=== PATIENT | male | born 1995 | race Caucasian/White ===

== ENCOUNTER 2018-12-04 10:24 | Inpatient (IN) | payer BC ==
[~2018-12-04] VITALS: Ht 185.4 cm; Wt 80.4 kg
--- NOTE | 2018-12-04 11:30 | NUR ---
Arrived to the room at this time. When placing and IV the patient became unresponsive for about 3-5 seconds. Following, the patient was diaphoretic and pupils were dilated to an 8. He was unaware of his change in level of consciousness. The mother who was at the bedside reported the patient frequently in the passed has had this happen when exposed to blood or body fluids. The patient was alert and oriented upon follow-up assessment. Dr. Winkler notified.
[2018-12-04] MEDS ORDERED: FLONASE NASAL S16 GM NS (12:23)
[2018-12-04 12:49] VITALS: BP 109/64; PULSE 82; TEMP 101.4
[2018-12-04 13:23] LABS: BASO % 0.2 % (0.0-2.0); GRAN # 9.1 (1.4-6.5); GRAN % 84.7 % (42.2-75.2); HEMOGLOBIN 14.9 g/dl (13.5-18.0); LYMPH # 0.9 (1.2-3.4); LYMPH % 8.1 % (20.0-51.0); MEAN CELL VOLUME 85 fl (80.0-100.0); MEAN CORPUSCULAR HEMOGLOBIN 30 pg (27.0-31.0); MEAN CORPUSCULAR HGB CONC 35 g/dl (33.0-37.0); MEAN PLATELET VOLUME 9.3 fl (7.4-10.4); MONO # 0.7 (0.1-0.6); MONO % 6.7 % (1.7-9.3); PLATELET COUNT 187 K/mm3 (130-400); RED BLOOD COUNT 5.04 M/mm3 (4.20-5.60); REDCELL DISTRIBUTION WIDTH-CV 12.5 % (11.5-14.5)
[2018-12-04 13:26] LABS: INR 1.4 (0.8-3.0); PROTHROMBIN TIME 15.7 SECONDS (9.7-12.8)
[2018-12-04 13:35] LABS: ALBUMIN 3.8 gm/dL (3.5-5.0); BILIRUBIN,TOTAL 0.8 mg/dL (0.0-1.0); CREATININE, serum 1.07 (0.66-1.25); MAGNESIUM 1.8 mg/dL (1.6-2.3); POTASSIUM 3.8 mmol/L (3.4-5.0); TOTAL PROTEIN 6.8 gm/dL (6.4-8.2)
[2018-12-04 16:04] VITALS: BP 116/60; PULSE 55; TEMP 98.1
[2018-12-04 21:33] VITALS: BP 119/71; PULSE 56; TEMP 98.3
--- NOTE | 2018-12-04 21:44 | NUR ---
PT IN BED WITH HOB ELEVATED TO 45 DEGREE ANGLE. PT HAS PAIN IN RIGHT UPPER QUAD RATED AT A 4/10 THAT IS ACHING. PT HAS MOTHER AND GIRLFRIEND AT BEDSIDE. NO NEEDS AT THIS TIME. CALL LIGHT WITHIN REACH.
[2018-12-05] VITALS (7 sets, daily range): BP systolic 92–118; BP diastolic 52–71; PULSE 48–69; TEMP 97.7–98.3
--- NOTE | 2018-12-05 04:00 | NUR ---
UNEVENTFUL NIGHT, PT SLEEP/RESTING IN BED WITH HOB ELEVATED TO 30 DEGREE ANGLE, GIRLFRIEND IN RECLINER AT BEDSIDE. PT DENIED PAIN OR DISCOMFORT AND HAS CALL LIGHT WITHIN REACH.
[2018-12-05 06:28] LABS: BASO % 0.3 % (0.0-2.0); EOS % 0.6 % (0-4.0); GRAN # 3.9 (1.4-6.5); HEMATOCRIT 39.9 % (42.0-52.0); HEMOGLOBIN 13.8 g/dl (13.5-18.0); LYMPH # 1.4 (1.2-3.4); LYMPH % 20.9 % (20.0-51.0); MEAN CELL VOLUME 86 fl (80.0-100.0); MEAN CORPUSCULAR HEMOGLOBIN 30 pg (27.0-31.0); MEAN CORPUSCULAR HGB CONC 35 g/dl (33.0-37.0); MEAN PLATELET VOLUME 9.4 fl (7.4-10.4); MONO # 1.2 (0.1-0.6); MONO % 17.7 % (1.7-9.3); PLATELET COUNT 172 K/mm3 (130-400); RED BLOOD COUNT 4.62 M/mm3 (4.20-5.60); REDCELL DISTRIBUTION WIDTH-CV 12.8 % (11.5-14.5)
[2018-12-05 06:32] LABS: INR 1.3 (0.8-3.0); PROTHROMBIN TIME 14.5 SECONDS (9.7-12.8)
[2018-12-05 06:39] LABS: CALCIUM 8.5 mg/dL (8.4-10.2); CREATININE, serum 0.91 (0.66-1.25)
--- NOTE | 2018-12-05 08:00 | NUR ---
Student RN, Joellen assisting with cares. This nurse reviewed the assessment and agree with her findings.
--- NOTE | 2018-12-05 11:24 | NUR ---
SW student attended clinical rounding and met with the patient and his parents, Socrates and Sarina, to discuss discharge planning. The patient lives in [place] independently and attends [employer]. The patient reports independence with ADLs and has no DME. The patients PCP is Dr. Margo Mendez and gets his medications from [facility] pharmacy. The patient has no difficulties obtaining his medications. The patient does not have a DPOA-HC in EMR and is not interested in one at this time. The patient plans to return home with family support upon discharge. No additional needs at this time.
--- NOTE | 2018-12-05 12:16 | NUR ---
First visit from the services manager. No needs right now.
--- NOTE | 2018-12-05 12:44 | NUR ---
No change throughout the morning. Voiced he had one BM, loose throughout the night. No pain or fevers. Plan to stay again tonight, continue IV ABX and monitor for change. IV fluids reduced to 100 ml/hr. Family is at the bedside.
--- NOTE | 2018-12-05 12:45 | NUR ---
Report given to CAROLYN Rodriguez to resume care.
--- NOTE | 2018-12-05 13:50 | NUR ---
Primary nurse was assisted with [id number] patient care by [employer] student Joellen Robbins and [facility] instructor Svetlana Rincon RN-.
--- NOTE | 2018-12-05 18:20 | NUR ---
Patient sitting up in bed. A&O, denies pain and discomfort. VS stable. IV CDI, fluids infusing. Diet advanced to full liquid diet, patient tolerating well. No further needs expressed from patient. Call light within reach
[2018-12-06 04:00] VITALS: BP 107/62; BP 122/69; PULSE 53; PULSE 77; TEMP 97.7; TEMP 97.9
--- NOTE | 2018-12-06 04:24 | NUR ---
PT HAD UNEVENTFUL NOC. NO C/O PAIN OR N/V/D THIS SHIFT. TOLLERATED FULL LIQUID DIET WELL THIS EVENING. NS AND ABX INFUSING ORDERED, WITHOUT ISSUES. NO ISSUES OR CONSERS VOICED OVERNIGHT.
--- NOTE | 2018-12-06 07:15 | NUR ---
Report received from CAROLYN Worley. PT in bed resting with lights off and girlfriend sleeping in recliner. Denies needs, will continue to monitor.
[2018-12-06 08:18] VITALS: BP 109/61; PULSE 61; TEMP 98.2
--- NOTE | 2018-12-06 09:46 | NUR ---
Pt in bed resting, doing well. States he had a formed stool last night. Taking PO well, will try a general lunch. Denies pain. INT to RA. Will continue to monitor.
[2018-12-06] MEDS ORDERED: FLAGYL500 MG PO ×2 (10:14)
[2018-12-06] MEDS ORDERED: CIPRO 500MG TA500 MG PO ×2 (10:15)
--- NOTE | 2018-12-06 12:45 | NUR ---
Pt up ambulating hallways getting himself more water. Report given to CAROLYN Guadalupe who will be resuming care.
[2018-12-06 12:47] VITALS: BP 113/58; PULSE 60; TEMP 97.2
--- NOTE | 2018-12-06 13:53 | NUR ---
Primary nurse was assisted with [phone] patient care by [employer] student Joellen Robbins and [facility] instructor Svetlana Rincon RN-.
[2018-12-06 16:33] VITALS: BP 94/63; PULSE 65; TEMP 98.4
[2018-12-06 22:00] VITALS: BP 114/61; PULSE 51; TEMP 98
[2018-12-07 04:45] VITALS: BP 114/56; PULSE 55; TEMP 97.8
--- NOTE | 2018-12-07 04:52 | NUR ---
PT HAD COMPANY THIS EVENING, VISITED AWHILE AND PTS SIGNIFICANT OTHER STAYED OVERNIGHT. THIS NURSE INFORMED PT THAT ABX WHERE ONLY ONE TIME A DAY NOW AND THAT HE WOULDNT NEED THE DOSE DURING THE NOC NOW. PT WAS EXCITED AND STATED THAT HE WAS GLAD HE COULD SLEEP THIS NOC WITHOUT WAKING UP FOR ABX DOSE. PT INDEPENDANT IN HALLWAYS. NO C/O PAIN OR N/V/D THIS SHIFT. PLEASANT AND COOPERATIVE WITH CARES. NO ISSUES OR CONSERNS VOICED.
[2018-12-07 06:50] LABS: BASO % 0.4 % (0.0-2.0); EOS # 0.1 (0.0-0.7); EOS % 2.3 % (0-4.0); GRAN # 3.2 (1.4-6.5); GRAN % 57.7 % (42.2-75.2); HEMATOCRIT 39.2 % (42.0-52.0); HEMOGLOBIN 13.5 g/dl (13.5-18.0); LYMPH # 1.6 (1.2-3.4); LYMPH % 29.6 % (20.0-51.0); MEAN CELL VOLUME 87 fl (80.0-100.0); MEAN CORPUSCULAR HEMOGLOBIN 30 pg (27.0-31.0); MEAN CORPUSCULAR HGB CONC 34 g/dl (33.0-37.0); MEAN PLATELET VOLUME 9.6 fl (7.4-10.4); MONO # 0.5 (0.1-0.6); MONO % 8.7 % (1.7-9.3); PLATELET COUNT 215 K/mm3 (130-400); RED BLOOD COUNT 4.52 M/mm3 (4.20-5.60); REDCELL DISTRIBUTION WIDTH-CV 12.8 % (11.5-14.5)
[2018-12-07 06:58] LABS: CALCIUM 9.1 mg/dL (8.4-10.2); CREATININE, serum 0.86 (0.66-1.25); POTASSIUM 3.9 mmol/L (3.4-5.0)
--- NOTE | 2018-12-07 07:19 | NUR ---
REPORT RECEIVED FROM CAROLYN MORATAYA. PT SLEEPING SOUNDLY IN BED. CALL LIGHT IN REACH. HIS GIRL FRIEND STAYED OVER NIGHT AND SLEEPING IN RECLINER.
[2018-12-07 08:25] VITALS: BP 108/67; PULSE 56; TEMP 97.4
--- NOTE | 2018-12-07 09:35 | NUR ---
Pt resting in bed comfortably and denied pain. Pt's family and friends are visiting in . No cocern at this time.
--- NOTE | 2018-12-07 09:48 | NUR ---
No GI coverage over this weekend, so unable to get GI consult for pt today and tomorrow.
--- NOTE | 2018-12-07 10:43 | NUR ---
Pt and family ambulating in hallway at this time. No concern.
--- NOTE | 2018-12-07 11:43 | NUR ---
Pt resting in bed and pt's family visiting in rm. Call light in reach.
[2018-12-07 11:47] VITALS: BP 112/65; PULSE 56; TEMP 97.3
--- NOTE | 2018-12-07 13:50 | NUR ---
Pt sitting in chair and doing his school work. Pt's family stepped outside to run some errands and will be back soon per pt's report. No concern. Call light in reach.
[2018-12-07 15:23] VITALS: BP 107/57; PULSE 56; TEMP 97.6
--- NOTE | 2018-12-07 16:17 | NUR ---
Pt resting in chair w/ no concern. Call light in reach.
--- NOTE | 2018-12-07 18:27 | NUR ---
Pt ambulating around in hallway with his friends.
[2018-12-07 20:54] VITALS: BP 111/59; PULSE 56; TEMP 97.5
[2018-12-08 03:42] VITALS: BP 108/62; PULSE 50; TEMP 97.8
--- NOTE | 2018-12-08 06:32 | NUR ---
PT HAD UNEVENTFUL NOC. NO CONSERNS OR ISSUES VOICED OVERNIGHT. NO NOTED N/V/D. NO C/O PAIN
[2018-12-08 08:20] VITALS: BP 111/59; PULSE 52; TEMP 97.4
[2018-12-08 12:41] VITALS: BP 112/66; PULSE 64; TEMP 97.5
[2018-12-08] MEDS ORDERED: LEVAQUIN 750MG750 M1 PO (13:14)
== END 2018-12-08 15:50 | disposition home or self-care (01) | DRG 872 ==
LOC: MEDICAL 10:24
PROVIDERS: Physician Assistant; ADMIT Internal Medicine
DX: A41.89 Other specified sepsis (principal); A04.5 Campylobacter enteritis
CPT/HCPCS: 99222-AI; 99232-AI; J0696; J0744; J7030; J7040; Q9967

== ENCOUNTER → 2018-12-04 | Outpatient (CLI) | payer BC ==
[~2018-12-04] MED LIST: CIPRO 500MG TA500 MG PO; FLAGYL500 MG PO; FLONASE NASAL S16 GM NS
== END ==
LOC: COL.RAD 09:09
DX: K51.00 Ulcerative (chronic) pancolitis without complications (principal); D72.829 Elevated white blood cell count, unspecified
CPT/HCPCS: Q9967